=== PATIENT | male | born 1995 | race Caucasian/White ===

== ENCOUNTER 2018-02-11 20:45 | Emergency (ER) | payer BC ==
[~2018-02-11] VITALS: Ht 167.6 cm; Wt 72.6 kg
[2018-02-11 21:38] LABS: SOURCE URINE
[2018-02-11 22:20] VITALS: BP 142/90
[2018-02-14 13:33] LABS: CHLAMYDIA TRACHOMATIS NEGATIVE; NEISSERIA GONORRHOEAE POSITIVE
== END 2018-02-11 22:21 | disposition home or self-care (01) ==
LOC: EME 20:45
PROVIDERS: Physician Assistant
DX: R36.9 Urethral discharge, unspecified (principal); F17.200 Nicotine dependence, unspecified, uncomplicated
CPT/HCPCS: 87491; 87591; 99281; 99283; J0696

== ENCOUNTER 2018-03-14 20:39 | Emergency (ER) | payer BC ==
[~2018-03-14] VITALS: Ht 165.1 cm; Wt 73.0 kg
[2018-03-14 21:35] LABS: SOURCE URINE
[2018-03-14 21:52] VITALS: BP 155/89
[2018-03-15 12:51] LABS: CHLAMYDIA TRACHOMATIS NEGATIVE; NEISSERIA GONORRHOEAE POSITIVE
== END 2018-03-14 21:53 | disposition home or self-care (01) ==
LOC: EME 20:39
PROVIDERS: Physician Assistant Medical
DX: N34.2 Other urethritis (principal); F17.200 Nicotine dependence, unspecified, uncomplicated
CPT/HCPCS: 87491; 87591; 99281; 99284; J0696